=== PATIENT | female | born 1970 | race Caucasian/White ===

== ENCOUNTER 2018-02-22 17:17 | Emergency (ER) | payer SELFPAY, OTHER ==
[2018-02-22] MEDS: cefTRIAXone SOD 1 GM VIAL (J0696) IM (19:44)
[2018-02-22] MEDS: LIDOCAINE 1% MDV 20ML VIAL IM (19:44)
[2018-02-22] MEDS: AUGMENTIN 875 MG TAB PO (19:44)
== END 2018-02-22 20:09 | disposition home or self-care (01) ==
LOC: M ED 17:17
DX: S61.452A Open bite of left hand, initial encounter (principal); L08.9 Local infection of the skin and subcutaneous tissue, unspecified; W55.01XA Bitten by cat, initial encounter; Y92.098 Other place in other non-institutional residence as the place of occurrence of the external cause; F17.210 Nicotine dependence, cigarettes, uncomplicated; Z88.2 Allergy status to sulfonamides
CPT/HCPCS: J0696